=== PATIENT | female | born 2000 | race Two or more races ===

== ENCOUNTER 2022-08-31 06:07 | Emergency (ER) | payer OTHER ==
[~2022-08-31] VITALS: Ht 165.1 cm; Wt 59.0 kg
[2022-08-31 09:06] LABS: Influenza A, PCR NEGATIVE (NEGATIVE); Influenza B, PCR NEGATIVE (NEGATIVE); Resp Syncytial Virus, PCR NEGATIVE (NEGATIVE); SARS-Cov-2 (COVID-19) PCR, MMC NEGATIVE (NEGATIVE)
[2022-08-31] MEDS ORDERED: ONDA4ODT MM (09:32)
== END 2022-08-31 09:42 | disposition home or self-care (01) ==
LOC: ER 06:07
PROVIDERS: Student in an Organized Health Care Education/Training Program
DX: R07.89 Other chest pain (principal); B34.9 Viral infection, unspecified; F12.90 Cannabis use, unspecified, uncomplicated; Z20.822 Contact with and (suspected) exposure to COVID-19
CPT/HCPCS: 0241U; 71046; A9270; J1790; J1885

== ENCOUNTER 2023-09-24 14:14 | Emergency (ER) | payer OTHER ==
[~2023-09-24] VITALS: Ht 165.1 cm; Wt 63.5 kg
[~2023-09-24 14:14] MED LIST: ONDA4ODT MM
[2023-09-24 15:31] VITALS: BP 113/75
== END 2023-09-24 15:31 | disposition home or self-care (01) ==
LOC: ER 14:14
DX: T75.4XXA Electrocution, initial encounter (principal); W86.8XXA Exposure to other electric current, initial encounter
CPT/HCPCS: 93005; 93010; 99284-25

== ENCOUNTER 2024-03-25 16:40 | Emergency (ER) | payer SELFPAY ==
[~2024-03-25] VITALS: Ht 167.6 cm; Wt 54.4 kg
[2024-03-25 16:45] VITALS: BP 122/92
[2024-03-25] MEDS ORDERED: Ondansetron HCl 2 MG / ML 2ML Vial IV ONE (17:00)
[2024-03-25] MEDS ORDERED: Ketorolac Tromethamine 15mg Vial IV ONE (17:10)
[2024-03-25 17:22] LABS: BASOPHILS ABSOLUTE AUTO 0.04 K/mm3 (0.00-0.23); BASOPHILS PERCENT AUTO 1 % (0-2); EOSINOPHILS ABSOLUTE AUTO 0.02 K/mm3 (0.00-0.68); EOSINOPHILS PERCENT AUTO 0 % (0-6); Hematocrit 40.7 % (33.0-51.0); IMMATURE GRAN ABSOLUTE AUTO 0.03 K/mm3 (0.00-0.10); IMMATURE GRAN PERCENT AUTO 0 % (0-1); LYMPHOCYTES ABSOLUTE AUTO 1.15 K/mm3 (0.84-5.20); LYMPHOCYTES PERCENT AUTO 14 % (21-46); MONOCYTES ABSOLUTE AUTO 0.55 K/mm3 (0.16-1.47); MONOCYTES PERCENT AUTO 7 % (4-13); Mean Corpuscular HGB 28.1 pg (26.0-34.0); Mean Corpuscular HGB Conc 34.4 g/dL (31.5-36.5); Mean Corpuscular Volume 82 fL (80-100); NEUTROPHILS ABSOLUTE AUTO 6.46 K/mm3 (1.96-9.15); NEUTROPHILS PERCENT AUTO 78 % (41-73); Platelet Count 234 K/mm3 (150-400); RDW Coefficient Variation 12.4 % (11.7-14.2); RDW Standard Deviation 37.2 fL (35.1-46.3); Red Blood Cell Count 4.99 M/mm3 (3.80-5.20); White Blood Cell Count 8.25 K/mm3 (4.00-11.30)
[2024-03-25 17:40] LABS: Anion Gap 8 mmol/L (3-11); Blood Urea Nitrogen 6 mg/dL (8-24); Bun/Creatinine Ratio 9.3 (12.0-20.0); CO2, Blood 24 mmol/L (21-32); Calcium, Blood 9.4 mg/dL (8.5-10.1); Chloride, Blood 108 mmol/L (98-108); Creatinine, Blood 0.64 mg/dL (0.40-1.00); Ethanol (Alcohol), Blood, Med <3 mg/dL; Glomerular Filtration Rate 129 (60-); Glucose, Blood 87 mg/dL (70-99); Magnesium, Blood 2.1 mg/dL (1.6-2.4); Potassium, Blood 3.8 mmol/L (3.5-5.5); Sodium, Blood 136 mmol/L (136-145)
[2024-03-25 17:45] LABS: U Amphetamine Screen Not Detected; U Barbituate Screen Not Detected; U Benzodiazapine Screen Not Detected; U Cannabinoids Screen DETECTED; U Cocaine Screen Not Detected; U Methadone Screen Not Detected; U Methamphetamine Screen Not Detected; U Opiates Screen Not Detected
[2024-03-25 17:46] LABS: U Buprenorphine Screen Not Detected; U Oxycodone Screen Not Detected; U Phencyclidine Screen Not Detected
[2024-03-25] MEDS ORDERED: ONDA4ODT MM (18:11)
== END 2024-03-25 18:42 | disposition home or self-care (01) ==
LOC: ER 16:40
PROVIDERS: Emergency Medicine
DX: R55 Syncope and collapse (principal)
CPT/HCPCS: 80048; 80320; 81025; 83735; 85025; 93005; 93010; 96374; 96375; 99284-25; J1885; J2405

== ENCOUNTER 2024-04-12 13:32 | Emergency (ER) | payer SELFPAY ==
[~2024-04-12] VITALS: Ht 167.6 cm; Wt 56.7 kg
[2024-04-12 14:03] VITALS: BP 129/81
== END 2024-04-12 14:56 | disposition home or self-care (01) ==
LOC: ER 13:32
DX: B34.8 Other viral infections of unspecified site (principal)
CPT/HCPCS: 87081; 87430; 99282